=== PATIENT | female | born 1990 | race African-American/Black ===

== ENCOUNTER 2017-05-02 13:20 | Inpatient (IN) | payer OTHER ==
[~2017-05-02 13:20] MED LIST: DEXTROSE 5%-LACTATED RINGERS 1,000 ML IV SCH
[2017-05-02] MEDS ORDERED: TUBERCULIN PPD 5 TU/0.1ML SYRINGE (IN PATIENT USE ONLY) ID ONE (13:31)
[2017-05-02 13:59] VITALS: BMI 43.8
[2017-05-02 14:21] LABS: BASOPHIL 0.1 % (0-2.0); EOSINOPHIL 1.1 % (0-4.5); MCH 27.8 pg (25.7-33.7); MEAN CELL VOLUME 84.2 fl (80-96); MEAN PLT VOLUME 8.1 fl (7.5-11.1); NEUTROPHILS 76.6 % (42.8-82.8); PLATELET COUNT 191 K/MM3 (134-434); RDW 14.6 % (11.6-15.6); WHITE BLOOD COUNT 9.3 K/mm3 (4.0-10.0)
[2017-05-02 14:38] LABS: INR 0.96 (0.82-1.09); PROTHROMBIN TIME (PATIENT) 10.9 SEC (9.98-11.88)
[2017-05-02 14:41] LABS: ACTIVATED PTT 28.6 SECONDS (26.9-34.4)
[2017-05-02 14:49] LABS: ALBUMIN 2.5 g/dl (3.4-5.0); ALK PHOS 115 U/L (45-117); ANION GAP 9 (8-16); BILIRUBIN,TOTAL 0.5 mg/dL (0.2-1.0); CALCIUM 8.3 mg/dL (8.5-10.1); CO2 24 mmol/L (21-32); CREATININE 0.5 mg/dL (0.55-1.02); GLUCOSE,RANDOM 80 mg/dL (74-106); SGOT/AST 13 U/L (15-37); SGPT/ALT 24 U/L (12-78); TOT PROT 5.9 g/dl (6.4-8.2)
--- NOTE | 2017-05-02 14:52 | PN ---
Progress Note (short form) - Note Progress Note: cx 4 cm 80 vx -2 mi . arom, clear , fhr cat 1
[2017-05-02 15:13] LABS: HIV 1 & 2 AB NEGATIVE; HIV 1 AGp24 NEGATIVE
[2017-05-02] MEDS ORDERED: PROMETHAZINE HCL 25 MG/1 ML VIAL IVPUSH ONE (15:43)
[2017-05-02] MEDS ORDERED: BUTORPHANOL TARTRATE 1 MG/ML VIAL IVPUSH ONE (15:43)
[2017-05-02] MEDS ORDERED: OXYTOCIN 15 UNITS/ LR 250 ML 250 ML IVPB SCH (15:45)
[2017-05-02] MEDS: ELECTROLYTE-148 SOLN 1,000 ML IV SCH ×2 (16:00→18:00)
[2017-05-02] MEDS ORDERED: FENTANYL/BUPIVACAINE/NS/PF - PCEA - 50 ML DISP.SYRIN EP SCH (17:15)
--- NOTE | 2017-05-02 17:48 | PN ---
Progress Note (short form) - Note Progress Note: cx 7 cm 80 vx -1 mr, fhr variable decel, pitocin stopped , LT side, o2, scalp electrode applied , increase iv fluid. revaluate
[2017-05-02] MEDS ORDERED: D5W-LR W/ 20 UNITS OXYTOCIN 1,000 ML IV SCH (20:45)
[2017-05-02] MEDS ORDERED: WITCH HAZEL 50% (TUCKS) 40 PAD/JAR PAD TP PRN (20:45)
[2017-05-02] MEDS ORDERED: METHYLERGONOVINE MALEATE 0.2 MG/1 ML AMP IM PRN (20:45)
[2017-05-02] MEDS ORDERED: BISACODYL 10 MG SUPP.RECT RC PRN (20:45)
[2017-05-02] MEDS ORDERED: BENZOCAINE 20% 57 GM BOTTLE TP PRN (20:45)
[2017-05-02] MEDS ORDERED: oxyCODONE HCL 5 MG TABLET PO PRN (20:45)
[2017-05-02] MEDS ORDERED: BENZOCAINE 28 GM HEMORRHOIDAL OINTMENT TP PRN (20:45)
--- NOTE | 2017-05-02 20:52 | HP ---
Past Medical History - Primary Care Physician PCP:: Tristan Lawson - Admission Chief Complaint: 4041.3 by date, 40.1 by sono for induction of labor History of Present Illness: 27 yo f g 2 p0100 0ne second trimester spont. , edc by sono 05/01/17, . admitted for pitocin induction, cx 4 cm, 80 vx -2 mi, fhr cat 1. History Source: Patient Limitations to Obtaining History: No Limitations - Past Medical History ...: 2 ...Para: 0 ...Term: 0 ...: 0 ...Spon : 1 ...Induced : 0 ...Multiple Gestation: 0 ...LMP: 07/13/16 ... Weeks Gestation by Dates: 41.3 ...EDC by Dates: 04/22/17 ...EDC by Sono: 05/01/17 - Past Surgical History Past Surgical History: Yes: None Hx Myomectomy: No Hx Transabdominal Cerclage: No - Smoking History Smoking history: Never smoked Have you smoked in the past 12 months: No Aproximately how many cigarettes per day: 4 - Alcohol/Substance Use Hx Alcohol Use: No - Social History Usual Living Arrangement: Yes: With Spouse History of Recent Travel: No Home Medications - Allergies Allergies/Adverse Reactions: Allergies Allergy/AdvReac Type Severity Reaction Status Date / Time No Known Allergies Allergy Verified 04/27/17 12:11 - Home Medications Home Medications: Ambulatory Orders Vit/Iron Fumarate/FA [ Tablet] 1 each PO DAILY 10/26/15 Review of Systems - Review of Systems Constitutional: reports: No Symptoms HENT: reports: No Symptoms Neck: reports: No Symptoms Cardiovascular: reports: No Symptoms Respiratory: reports: No Symptoms Gastrointestinal: reports: No Symptoms Genitourinary: reports: No Symptoms Breasts: reports: No Symptoms Reported Musculoskeletal: reports: No Symptoms Integumentary: reports: No Symptoms Neurological: reports: No Symptoms Endocrine: reports: No Symptoms Hematology/Lymphatic: reports: No Symptoms Psychiatric: reports: No Symptoms Physical Exam - Maternity Vital Signs: Vital Signs Temperature 98.0 F 05/02/17 18:00 Pulse Rate 85 05/02/17 19:30 Respiratory Rate 18 05/02/17 19:30 Blood Pressure 124/53 05/02/17 19:15 O2 Sat by Pulse Oximetry (%) 100 05/02/17 19:30 - Abdominal Exam/OB Number of Fetuses: Single Presentation: Vertex Contractions: Yes Regularity: Irregular Intensity: Unaware Heart Rate Location: [facility] Category: I Accelerations: Uniform Decelerations: None - Vaginal Exam/OB Vaginal Bleediing: No Speculum Exam: No Dilatation (cm): 4 cm Effacement (%): 80 Amniotic Membrane Status: Bulging Presentation: Vertex/Position Station: -2 - Physical Exam Edema: Yes Edema: LLE: Trace, RLE: Trace Deep Tendon Reflex Grade: Normal +2 ...Motor Strength: WNL Psychiatric: Yes: WNL - Labs Lab Results: CBC, BMP 05/02/17 14:00 05/02/17 14:00 Hemorrhage Risk Assessment - Risk Factors Medium Risk Factors: Yes: None High Risk Factors: Yes: None Risk Score: 1 Risk Level: Medium Risk Problem List - Problems (1) Post term over 40 weeks Code(s): O48.0 - POST-TERM (2) Elective induction of labor planned Code(s): NII3963 - Assessment/Plan admit, fhm, pitocin rba discussed
[2017-05-02 20:57] LABS: VENOUS BLOOD GAS HCO3 22.5 meq/L (19-25); VENOUS PH 7.32 (7.32-7.42)
[2017-05-02 20:59] LABS: ART PUNCT SITE LEFT RADIAL; ARTERIAL BLOOD GAS HCO3 22.5 meq/L (22-26); ARTERIAL BLOOD GAS pH 7.33 (7.35-7.45)
[2017-05-02 21:00] LABS: ARTERIAL BLOOD GAS PO2 40.5 mmHg (80-100)
[2017-05-02] MEDS: FERROUS SO4 325 MG TABLET (FP) PO SCH (23:16)
[2017-05-03] MEDS: IBUPROFEN 600 MG TABLET (FP) PO PRN ×2 (00:06→15:46)
[2017-05-03] MEDS: ACETAMINOPHEN 325 MG TABLET (FP) PO PRN ×2 (00:08→15:48)
--- NOTE | 2017-05-03 08:08 | PN ---
Progress Note (short form) - Note Progress Note: ppd 1 doing well, voids ok, no excess vaginal bleeding CBC, BMP 05/02/17 14:00 Last Vital Signs Temp Pulse Resp BP Pulse Ox 97.7 F 75 20 100/48 100 05/03/17 06:00 05/03/17 06:00 05/03/17 06:00 05/03/17 06:00 05/02/17 21:30 abdomen soft, uterus firm, non tender lochia mild no calf tenderness plan ambulate cbc Problem List - Problems (1) Post term over 40 weeks Code(s): O48.0 - POST-TERM (2) Elective induction of labor planned Code(s): [id number] -
[2017-05-03 08:12] LABS: BASOPHIL 0.1 % (0-2.0); EOSINOPHIL 0.6 % (0-4.5); MCH 27.9 pg (25.7-33.7); MEAN CELL VOLUME 84.7 fl (80-96); MEAN PLT VOLUME 8.2 fl (7.5-11.1); NEUTROPHILS 76.7 % (42.8-82.8); PLATELET COUNT 181 K/MM3 (134-434); RDW 14.5 % (11.6-15.6); WHITE BLOOD COUNT 18.2 K/mm3 (4.0-10.0)
[2017-05-03] MEDS ORDERED: DIPHTH,PERTUSS(ACELL),TET 0.5 ML DISP.SYRIN IM ONE (10:00)
[2017-05-03] MEDS ORDERED: FLU VACC QS2017-18 36MOS UP/PF 60 MCG/0.5 ML SYRINGE IM ONE (10:00)
[2017-05-03] MEDS: FERROUS SO4 325 MG TABLET (FP) PO SCH ×2 (10:42→21:39)
[2017-05-03] MEDS: PRENATAL VITAMINS W/ FOLIC ACID TABLET (FP) PO SCH (10:42)
[2017-05-03] MEDS ORDERED: SENNOSIDES/DOCUSATE COMBO (SENNA PLUS) TABLET (UD) PO PRN (22:00)
[2017-05-04] MEDS: IBUPROFEN 600 MG TABLET (FP) PO PRN ×2 (00:18→08:30)
[2017-05-04] MEDS: ACETAMINOPHEN 325 MG TABLET (FP) PO PRN ×2 (00:18→08:29)
[2017-05-04] MEDS: PRENATAL VITAMINS W/ FOLIC ACID TABLET (FP) PO SCH (10:01)
[2017-05-04] MEDS: FERROUS SO4 325 MG TABLET (FP) PO SCH (10:01)
--- NOTE | 2017-05-04 10:47 | PN ---
Post Progress Note - Subjective Subjective: Patient without acute complaints. Reports tolerating oral intake without nausea or vomiting. Ambulating without dizziness. Denies fevers or chills. Pain well controlled with oral pain medication. Passing flatus. Post Day: 2 Type of Delivery: Vital Signs: Vital Signs Temperature 98.4 F 05/03/17 21:15 Pulse Rate 81 05/03/17 21:15 Respiratory Rate 20 05/03/17 21:15 Blood Pressure 124/89 05/03/17 21:15 O2 Sat by Pulse Oximetry (%) 100 05/02/17 21:30 Breast Exam: Yes: Engorged Uterus: Yes: Fundus Firm Abdomen/GI: Yes: Abdomen soft, Passing flatus, Tolerating PO. No: Tender Lochia: Yes: Serosa Extremities: Yes: Edema (+1) Activity: Ambulating - Labs Labs: CBC WBC 18.2 K/mm3 (4.0-10.0) H D 05/03/17 06:30 RBC 4.22 M/mm3 (3.60-5.2) 05/03/17 06:30 Hgb 11.8 GM/dL (10.7-15.3) 05/03/17 06:30 Hct 35.7 % (32.4-45.2) 05/03/17 06:30 MCV 84.7 fl (80-96) 05/03/17 06:30 MCH 27.9 pg (25.7-33.7) 05/03/17 06:30 MCHC 33.0 g/dl (32.0-36.0) 05/03/17 06:30 RDW 14.5 % (11.6-15.6) 05/03/17 06:30 Plt Count 181 K/MM3 (134-434) 05/03/17 06:30 MPV 8.2 fl (7.5-11.1) 05/03/17 06:30 Neutrophils % 76.7 % (42.8-82.8) 05/03/17 06:30 Lymphocytes % 13.0 % (8-40) 05/03/17 06:30 Monocytes % 9.6 % (3.8-10.2) 05/03/17 06:30 Eosinophils % 0.6 % (0-4.5) 05/03/17 06:30 Basophils % 0.1 % (0-2.0) 05/03/17 06:30 Assessment/Plan 27 yo PPD # 2 s/p , afebrile, vital signs stable, doing well 1. Patient stable for discharge home today. 2. Patient encouraged to contact MD for: - Severe pain not controlled by oral pain medication - Fevers or chills - Nausea or vomiting, intolerance of oral intake 3. Patient to follow up in office in 4-6 weeks for visit
[2017-05-04 12:16] VITALS: BP 134/72; PULSE 90; TEMP 98
--- NOTE | 2017-05-07 08:52 | DS ---
Physical Exam-CREDIT DIRECTOR Vital Signs: Vital Signs Temperature 98.0 F 05/04/17 09:00 Pulse Rate 90 05/04/17 09:00 Respiratory Rate 20 05/04/17 09:00 Blood Pressure 134/72 05/04/17 09:00 O2 Sat by Pulse Oximetry (%) 100 05/02/17 21:30 Constitutional: Yes: Well Nourished, No Distress, Calm Eyes: Yes: WNL, Conjunctiva Clear, EOM Intact HENT: Yes: WNL, Atraumatic, Normocephalic Neck: Yes: WNL, Supple, Trachea Midline Cardiovascular: Yes: WNL, Regular Rate and Rhythm Respiratory: Yes: WNL, Regular, CTA Bilaterally Gastrointestinal: Yes: WNL ...Rectal Exam: Yes: WNL Renal/: Yes: WNL ....Post : Yes: Uterus firm, Uterus non-tender, Slight lochia rubra Breast(s): Yes: WNL Musculoskeletal: Yes: WNL Extremities: Yes: WNL Edema: No Integumentary: Yes: WNL Neurological: Yes: WNL, Alert, Oriented ...Motor Strength: WNL Psychiatric: Yes: WNL, Alert, Oriented Labs: CBC, BMP 05/03/17 06:30 05/02/17 14:00 Delivery - Delivery Vaginal Delivery: Spontaneous (no complication) Type of Anesthesia: Epidural Episiotomy/Laceration: None EBL (cc): 300 Delivery, Single - Stages of Labor Date 1st Stage Initiatied: 05/02/17 Time 1st Stage Initiated: 14:45 Date 2nd Stage Initiated: 05/02/17 Time 2nd Stage Initiated: 20:00 Date of Delivery: 05/02/17 Time of Delivery: 20:29 Time Placenta Delivered: 20:34 Placenta: Yes: Spontaneous - Condition of Infant Part Time Flexible Clerk/Home Health Care Physician Present: No Gender: Female Weight: 6 lb 12 oz Position: Left, OA Total Hours ROM (Hrs/Mins): 5h56m - 1 Minute Total Score: 8 5 Minutes Total Score: 9 - Feeding Plan Initial Plan: Elected not to breastfeed exclusively throughout hospitalization Discharge Summary Reason For Visit: INDUCTION OF LABOR Other Procedures: Condition: Good - Instructions Diet, Activity, Other Instructions: Physical activity Resume your normal everyday activity as tolerated no heavy lifting or exercise until seen by your surgeon. You may walk unlimited geovanna of and climb stairs. You may resume driving the car when you feel safe and comfortable behind the wheel. No sexual activity as instructed. Diet There are no dietary restrictions. Eat healthy, high-fiber foods. Drink 6 to 8 glasses of liquid each day. This will assist in keeping your bowels are regular. Pain management You may take Tylenol or acetaminophen or Ibuprofen (for example, Motrin, Advil etc.) from my pain prescription medication is ordered should be taken as prescribed for moderate to severe pain. Call MD for any of the following: Severe pain not relieved by medication Fever of 101 or higher Excessive bleeding or drainage on dressing Inability to urinate Referrals: Tristan Lawson MD [Staff Physician] - Disposition: HOME - Home Medications Comprehensive Discharge Medication List: Ambulatory Orders Vit/Iron Fumarate/FA [ Tablet] 1 each PO DAILY 10/26/15
== END 2017-05-04 13:00 | disposition home or self-care (01) | DRG 560 ==
LOC: JLDR 13:20 → J3W 22:13
PROVIDERS: ADMIT Obstetrics & Gynecology; ATTEND Obstetrics & Gynecology
PROC: 10E0XZZ Delivery of Products of Conception, External Approach (ICD-10-PCS; principal; 2017-05-02)
DX: O48.0 Post-term pregnancy (principal); Z3A.40 40 weeks gestation of pregnancy; Z37.0 Single live birth
CPT/HCPCS: 36415; 36600; 59409; 80053; 82803; 85025; 85610; 85730; 86593; 86850; 86900; 86901; 87389; 90686; 90715; G0008

== ENCOUNTER 2021-03-06 03:45 | Emergency (ER) | payer OTHER ==
[2021-03-06 04:05] VITALS: BMI 37.5
[2021-03-06 04:29] LABS: URINE APPEARANCE CLEAR; URINE BILIRUBIN NEGATIVE (NEGATIVE); URINE COLOR YELLOW; URINE GLUCOSE (UA) NEGATIVE (NEGATIVE); URINE KETONE TRACE (NEGATIVE); URINE LEUK ESTERASE NEGATIVE (NEGATIVE); URINE NITRITE NEGATIVE (NEGATIVE); URINE PROTEIN NEGATIVE (NEGATIVE)
[2021-03-06 04:31] LABS: HCG,QUALITATIVE URINE Negative
[2021-03-06] MEDS ORDERED: ACETAMINOPHEN 325 MG TABLET (FP) PO ONE (04:57)
[2021-03-06] MEDS ORDERED: ACETAMINOPHEN 325 MG TABLET (FP) ONE (05:26)
[2021-03-06] MEDS ORDERED: FLUCONAZOLE 50 MG TABLET PO ONE (06:21)
[2021-03-06 06:54] LABS: HEMATOCRIT 41.3 % (32.4-45.2); HEMOGLOBIN 14.2 GM/dL (10.7-15.3); MCH 29.4 pg (25.7-33.7); MCHC 34.5 g/dl (32.0-36.0); MEAN CELL VOLUME 85.4 fl (80-96); MEAN PLT VOLUME 8.2 fl (7.5-11.1); PLATELET COUNT 245 10^3/uL (134-434); RBC 4.83 M/mm3 (3.60-5.2); RDW 15.3 % (11.6-15.6); WHITE BLOOD COUNT 3.5 K/mm3 (4.0-10.0)
[2021-03-06] MEDS ORDERED: FLUCONAZOLE 150 MG TABLET PO ONE (06:54)
[2021-03-06 07:13] LABS: CHLORIDE 104 mmol/L (98-107); SODIUM 137 mmol/L (136-145)
[2021-03-06 07:16] LABS: ANION GAP 5 MMOL/L (8-16); BLOOD UREA NITROGEN 7.7 mg/dL (7-18); CALCIUM 8.7 mg/dL (8.5-10.1); CO2 27 mmol/L (21-32); GLUCOSE,RANDOM 81 mg/dL (74-106); LIPASE 62 U/L (73-393)
[2021-03-06 07:17] LABS: ALBUMIN 3.8 g/dl (3.4-5.0)
[2021-03-06 07:19] LABS: CREATININE 0.9 mg/dL (0.55-1.3); SGOT/AST 13 U/L (15-37); SGPT/ALT 19 U/L (13-61)
[2021-03-06 07:20] LABS: BILIRUBIN,TOTAL 0.2 mg/dL (0.2-1); TOT PROT 7.4 g/dl (6.4-8.2)
[2021-03-06 07:22] LABS: ALK PHOS 68 U/L (45-117)
[2021-03-06 10:14] LABS: ANISOCYTOSIS 0; MACROCYTOSIS 0; PLATELET ESTIMATE NORMAL
[2021-03-06] MEDS ORDERED: KETOROLAC TROMETHAMINE 15 MG/ML VIAL IVPUSH ONE (11:40)
[2021-03-06] MEDS ORDERED: SODIUM CHLORIDE 0.9% 500 ML INFUS.BAG IV ONE (11:40)
[2021-03-06] MEDS ORDERED: CASIRIVIMAB/IMDEVIMAB 10 ML in SODIUM CHLORIDE 100 ML IVPB ONE (12:46)
[2021-03-06] MEDS ORDERED: KETOROLAC TROMETHAMINE 15 MG/ML VIAL ONE (12:57)
[2021-03-06 13:25] LABS: HEMATOCRIT 39.4 % (32.4-45.2); HEMOGLOBIN 13.3 GM/dL (10.7-15.3); MCH 28.5 pg (25.7-33.7); MCHC 33.8 g/dl (32.0-36.0); MEAN CELL VOLUME 84.5 fl (80-96); MEAN PLT VOLUME 7.6 fl (7.5-11.1); PLATELET COUNT 215 10^3/uL (134-434); RBC 4.67 M/mm3 (3.60-5.2); RDW 15.3 % (11.6-15.6); WHITE BLOOD COUNT 2.7 K/mm3 (4.0-10.0)
[2021-03-06 13:42] VITALS: TEMP 97.9
[2021-03-06 14:02] LABS: ANISOCYTOSIS 0; MACROCYTOSIS 0; PLATELET ESTIMATE NORMAL
[2021-03-06 14:28] LABS: SYPHILIS W/ RPR CONF NON-REACTIVE (NONREACTIVE)
[2021-03-06 14:57] LABS: HIV INTERPRETATION NEGATIVE (NEGATIVE)
[2021-03-06 17:06] VITALS: BP 148/103; PULSE 77
== END 2021-03-06 17:26 | disposition home or self-care (01) ==
LOC: JCOVINFU 03:45 → JER 03:45 → JCOVINFU 17:26
PROC: 3E03329 Introduction of Other Anti-infective into Peripheral Vein, Percutaneous Approach (ICD-10-PCS; principal; 2021-03-06)
PROC: 3E0333Z Introduction of Anti-inflammatory into Peripheral Vein, Percutaneous Approach (ICD-10-PCS; 2021-03-06)
DX: R10.2 Pelvic and perineal pain (principal); B37.3 Candidiasis of vulva and vagina
CPT/HCPCS: 36415; 76830-TC; 80053; 80307; 81003; 83605; 83690; 84703; 85025; 86780; 87086; 87389; 87491; 87591; 87661; 99284-25; C9803; M0240; Q0240; U0003; U0005

== ENCOUNTER 2021-09-13 15:08 | Emergency (ER) | payer OTHER ==
[2021-09-13 15:27] VITALS: BMI 39.4
[2021-09-13] MEDS ORDERED: ACETAMINOPHEN 325 MG TABLET (FP) PO ONE (16:11)
[2021-09-13] MEDS ORDERED: ACETAMINOPHEN 325 MG TABLET (FP) ONE (16:35)
[2021-09-13 18:29] LABS: PH,URINE 6.5 (5.0-8.0); URINE APPEARANCE CLEAR; URINE BILIRUBIN NEGATIVE (NEGATIVE); URINE COLOR YELLOW; URINE GLUCOSE (UA) NEGATIVE (NEGATIVE); URINE KETONE NEGATIVE (NEGATIVE); URINE LEUK ESTERASE NEGATIVE (NEGATIVE); URINE NITRITE NEGATIVE (NEGATIVE); URINE PROTEIN NEGATIVE (NEGATIVE)
[2021-09-13 18:32] LABS: HCG,QUALITATIVE URINE Negative
[2021-09-13 18:45] VITALS: BP 133/68; PULSE 76; TEMP 98.6
[2021-09-14 18:10] LABS: SARS-CoV-2 NAA Not Detected (Not Detected)
== END 2021-09-13 19:21 | disposition home or self-care (01) ==
LOC: JER 15:08
DX: R51.9 Headache, unspecified (principal); R50.9 Fever, unspecified; M79.10 Myalgia, unspecified site
CPT/HCPCS: 81003; 84703; 87086; 87804; 99283-25; C9803; U0003; U0005

== ENCOUNTER 2025-01-10 09:19 | Inpatient (IN) | payer OTHER ==
[2025-01-10 10:32] LABS: BASOPHILS # 0.03 x10^3/uL (0.01-0.08); EOSINOPHIL % 0.7 % (0.7-5.8); EOSINOPHILS # 0.06 x10^3/uL (0.04-0.36); HEMOGLOBIN 10.8 g/dL (11.2-15.7); MCHC 32.7 g/dl (32.2-35.5); MEAN CELL VOLUME 86.2 fl (79.4-94.8); MEAN PLT VOLUME 9.7 fl (9.4-12.3); MONOCYTE # 1.01 x10^3/uL (0.24-0.86); PLATELET COUNT 218 x10^3/uL (182-369); RDW 14.7 % (12.1-16.8)
[2025-01-10 10:40] LABS: INR 1.03 (0.83-1.09); PROTHROMBIN TIME (PATIENT) 11.2 SEC (9.7-13.0)
[2025-01-10 10:43] LABS: ACTIVATED PTT 28.1 SECONDS (25.2-36.5)
[2025-01-10 10:51] LABS: CALCIUM 9.3 mg/dL (8.5-10.1)
[2025-01-10 10:52] LABS: BLOOD UREA NITROGEN 9.6 mg/dL (7-18)
[2025-01-10 10:55] VITALS: BMI 41.3
[2025-01-10 10:55] LABS: CREATININE 0.5 mg/dL (0.55-1.3)
[2025-01-10] MEDS: ELECTROLYTE-148 SOLN 1,000 ML IV SCH (11:30)
[2025-01-10] MEDS: OXYTOCIN 30 UNITS in 0.9% NS 30 UNIT/500 ML INFUS.BAG IVPB SCH (11:40)
[2025-01-10] MEDS ORDERED: FENTANYL/BUPIVACAINE/NS/PF - PCEA - 50 ML DISP.SYRIN EP ONE (18:30)
[2025-01-10] MEDS ORDERED: NALOXONE HCL 0.4 MG/ML VIAL IVPUSH PRN (18:30)
[2025-01-10] MEDS ORDERED: BUPIVACAINE HCL/PF 0.25% (2.5MG/ML) 10 ML VIAL ONE (18:32)
[2025-01-10] MEDS ORDERED: FENTANYL CITRATE/PF 50 MCG/ML VIAL ONE (18:32)
[2025-01-10] MEDS: FENTANYL/BUPIVACAINE/NS/PF - PCEA - 50 ML DISP.SYRIN EP SCH (18:50)
[2025-01-10] MEDS ORDERED: OXYTOCIN 20 UNITS in 0.9% NS 20 UNIT/1,000 ML INFUS.BAG IV ONE (20:52)
[2025-01-10] MEDS: OXYTOCIN 20 UNITS in 0.9% NS 20 UNIT/1,000 ML INFUS.BAG IV SCH (21:50)
[2025-01-10] MEDS ORDERED: BENZOCAINE 20% 57 GM BOTTLE TP PRN (22:02)
[2025-01-10] MEDS ORDERED: ACETAMINOPHEN 325 MG TABLET (FP) PO PRN (22:02)
[2025-01-10] MEDS ORDERED: BENZOCAINE 28 GM HEMORRHOIDAL OINTMENT TP PRN (22:02)
[2025-01-10] MEDS ORDERED: METHYLERGONOVINE MALEATE 0.2 MG/1 ML AMP IM PRN (22:02)
[2025-01-10] MEDS ORDERED: BISACODYL 10 MG SUPP.RECT RC PRN (22:02)
[2025-01-10] MEDS ORDERED: WITCH HAZEL 50% (TUCKS) 40 PAD/JAR PAD TP PRN (22:02)
[2025-01-10] MEDS ORDERED: CEFAZOLIN 1 GM/D5W 2 GM/100 ML BAG ONE (22:05)
[2025-01-10 22:09] LABS: CORD BASE EXCESS -9.1 mmol/L (0-2); CORD HCO3 22.9 mmHg (20-29); CORD PCO2 78.6 mmHg (30-78); CORD pH 7.082 (7.14-7.44); CORD pH 7.197 (7.14-7.44)
[2025-01-10] MEDS: CEFAZOLIN SODIUM 2 GM VIAL IVPB SCH (22:20)
[2025-01-10] MEDS: CEFAZOLIN SODIUM 2 GM in DEXTROSE 5%-WATER 100 ML IVPB SCH (23:27)
[2025-01-11] MEDS: IBUPROFEN 600 MG TABLET (FP) PO PRN (01:03)
[2025-01-11 07:11] LABS: BASOPHILS # 0.02 x10^3/uL (0.01-0.08); EOSINOPHIL % 0.4 % (0.7-5.8); EOSINOPHILS # 0.05 x10^3/uL (0.04-0.36); HEMATOCRIT 33.8 % (34.1-44.9); HEMOGLOBIN 10.9 g/dL (11.2-15.7); MCHC 32.2 g/dl (32.2-35.5); MEAN CELL VOLUME 87.6 fl (79.4-94.8); MONOCYTE # 1.53 x10^3/uL (0.24-0.86); MONOCYTE % 11.4 % (4.7-12.5); PLATELET COUNT 176 x10^3/uL (182-369); RDW 14.6 % (12.1-16.8)
[2025-01-11] MEDS: PRENATAL VITAMINS W/ FOLIC ACID TABLET (FP) PO SCH (08:54)
[2025-01-11] MEDS: FERROUS SO4 325 MG TABLET (FP) PO SCH (08:54)
[2025-01-11] MEDS: FAMOTIDINE 20 MG TABLET PO PRN (12:33)
[2025-01-11] MEDS ORDERED: SENNOSIDES/DOCUSATE COMBO (SENNA PLUS) TABLET (UD) PO PRN (22:00)
[2025-01-12 08:59] VITALS: BP 120/74; PULSE 79; RESP 16; TEMP 97.8
== END 2025-01-12 13:35 | disposition home or self-care (01) | DRG 560 ==
LOC: JLDR 09:19 → J3W 23:52
PROVIDERS: ADMIT Obstetrics & Gynecology; ATTEND Obstetrics & Gynecology
PROC: 10E0XZZ Delivery of Products of Conception, External Approach (ICD-10-PCS; principal; 2025-01-10)
DX: O48.0 Post-term pregnancy (principal); O69.81X0 Labor and delivery complicated by cord around neck, without compression, not applicable or unspecified; Z3A.41 41 weeks gestation of pregnancy; Z37.0 Single live birth
CPT/HCPCS: 36415; 36600; 59409; 80048; 82803; 85025; 85610; 85730; 86780; 86850; 86900; 86901; 88307-TC